=== PATIENT | female | born 2005 | race Caucasian/White ===

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

== ENCOUNTER → 2024-10-11 | Outpatient (CLI) | payer OTHER ==
[~2024-10-11] MED LIST changes: +ACET500 PO; +AMOCLA875 PO
[2024-10-11 13:37] LABS: Source, Urine Clean Catch
[2024-10-11 15:41] LABS: U Amphetamine Screen Not Detected; U Barbituate Screen Not Detected; U Benzodiazapine Screen Not Detected; U Buprenorphine Screen Not Detected; U Cannabinoids Screen Not Detected; U Cocaine Screen Not Detected; U Methadone Screen Not Detected; U Methamphetamine Screen Not Detected; U Opiates Screen Not Detected; U Oxycodone Screen Not Detected; U Phencyclidine Screen Not Detected
[2024-10-11 15:45] LABS: Amorphous Mod (0-Heavy); Bacteria Mod /hpf; Red Blood Cells, Urine 0-2 /hpf (0-2); Squamous Epithelial Cells Few /hpf (Few)
== END | disposition home or self-care (01) ==
LOC: LAB 13:34 → LAB SHORT 13:34
PROVIDERS: Advanced Practice Midwife
DX: Z34.81 Encounter for supervision of other normal pregnancy, first trimester (principal)
CPT/HCPCS: 81015; 87086

== ENCOUNTER 2025-01-02 20:48 | Emergency (ER) | payer OTHER ==
[~2025-01-02] VITALS: Ht 162.6 cm; Wt 69.4 kg
[2025-01-02 21:35] LABS: Albumin/Globulin Ratio 0.8 (0.8-1.8); Bilirubin, Total 0.2 mg/dL (0.1-1.0); Bun/Creatinine Ratio 16.4 (12.0-20.0); Calcium, Blood 8.8 mg/dL (8.5-10.1); Creatinine, Blood 0.49 mg/dL (0.40-1.00); Globulin, Blood 3.8 g/dL (2.2-4.0); Potassium, Blood 4.3 mmol/L (3.5-5.5); Total Protein, Blood 6.8 g/dL (6.4-8.2)
[2025-01-02 21:36] LABS: BASOPHILS ABSOLUTE AUTO 0.05 K/mm3 (0.00-0.23); BASOPHILS PERCENT AUTO 0 % (0-2); EOSINOPHILS ABSOLUTE AUTO 0.07 K/mm3 (0.00-0.68); EOSINOPHILS PERCENT AUTO 0 % (0-6); Hematocrit 33.9 % (33.0-51.0); Hemoglobin 11.7 g/dL (11.5-16.0); IMMATURE GRAN ABSOLUTE AUTO 0.08 K/mm3 (0.00-0.10); IMMATURE GRAN PERCENT AUTO 1 % (0-1); LYMPHOCYTES ABSOLUTE AUTO 2.81 K/mm3 (0.84-5.20); LYMPHOCYTES PERCENT AUTO 18 % (21-46); MONOCYTES ABSOLUTE AUTO 0.62 K/mm3 (0.16-1.47); MONOCYTES PERCENT AUTO 4 % (4-13); Mean Corpuscular HGB 29.2 pg (26.0-34.0); Mean Corpuscular HGB Conc 34.5 g/dL (31.5-36.5); Mean Corpuscular Volume 85 fL (80-100); Mean Platelet Volume 10.9 fL (9.1-12.4); NEUTROPHILS ABSOLUTE AUTO 12.33 K/mm3 (1.96-9.15); NEUTROPHILS PERCENT AUTO 77 % (41-73); Platelet Count 242 K/mm3 (150-400); RDW Coefficient Variation 13.7 % (11.7-14.2); RDW Standard Deviation 42.4 fL (35.1-46.3); Red Blood Cell Count 4.01 M/mm3 (3.80-5.20); White Blood Cell Count 15.96 K/mm3 (4.00-11.30)
[2025-01-02] MEDS ORDERED: Ondansetron HCl 2 MG / ML 2ML Vial IV ONE (22:25)
[2025-01-02] MEDS ORDERED: D5W-NS 1,000 ML IV SCH (22:25)
[2025-01-02 22:39] LABS: Source, Urine Clean Catch
[2025-01-02 22:43] LABS: Bilirubin, Urine Neg (Neg); Blood, Urine 1+ (Neg); Glucose Qualitative, Urine Neg (Neg); Ketones, Urine Neg (Neg); Leukocyte Esterase, Urine 2+ (Neg); Nitrite, Urine Neg (Neg); Protein, Urine 1+ (Neg); Specific Gravity, Urine 1.025 (1.003-1.022); Urobilinogen, Urine NORM (Normal)
[2025-01-02 22:53] LABS: Amorphous Light (0-Heavy); Appearance, Urine Hazy (Clear); Bacteria Many /hpf; Color, Urine Yellow (P-Yellow); Mucus Light (0-Heavy); Squamous Epithelial Cells Mod /hpf (Few)
[2025-01-02 23:15] VITALS: BP 101/69
[2025-01-02] MEDS ORDERED: CEPH500 PO (23:23)
[2025-01-02] MEDS ORDERED: ONDA4ODT MM (23:23)
[2025-01-02] MEDS ORDERED: Cephalexin Monohydrate 500 MG Cap PO ONE (23:25)
== END 2025-01-02 23:40 | disposition home or self-care (01) ==
LOC: ER 20:48
PROVIDERS: Emergency Medicine; Student in an Organized Health Care Education/Training Program
DX: O23.42 Unspecified infection of urinary tract in pregnancy, second trimester (principal); N39.0 Urinary tract infection, site not specified; Z3A.19 19 weeks gestation of pregnancy; F17.290 Nicotine dependence, other tobacco product, uncomplicated
CPT/HCPCS: 76815; 80053; 81001; 83690; 85025; 87086; 96361; 96374; 99284-25; A9270; J2405; J7042

== ENCOUNTER 2025-04-24 10:25 | Emergency (ER) | payer OTHER ==
[~2025-04-24] VITALS: Ht 157.5 cm; Wt 81.7 kg
[2025-04-24 11:04] VITALS: BP 131/76
[2025-04-24] MEDS ORDERED: HYDROCODONE-AC1 EA10 PO (11:09)
[2025-04-24] MEDS ORDERED: Amoxicillin875 MG PO (11:09)
[2025-05-23] MEDS ORDERED: IBUP800 PO (11:24)
== END 2025-07-02 11:14 | disposition home or self-care (01) ==
LOC: ER 10:25
DX: O99.613 Diseases of the digestive system complicating pregnancy, third trimester (principal); K08.89 Other specified disorders of teeth and supporting structures; Z3A.35 35 weeks gestation of pregnancy; Z79.899 Other long term (current) drug therapy; F17.290 Nicotine dependence, other tobacco product, uncomplicated
CPT/HCPCS: 99282

== ENCOUNTER 2025-04-28 22:41 | Observation (INO) | payer OTHER ==
[~2025-04-28] VITALS: Ht 157.5 cm; Wt 82.3 kg
[~2025-04-28 22:41] MED LIST changes: +Amoxicillin875 MG PO; +HYDROCODONE-AC1 EA10 PO
[2025-04-28 22:53] VITALS: BP 111/60
[2025-04-29 01:40] VITALS: BP 111/57
[2025-04-29 07:29] VITALS: BP 109/56
[2025-04-29 09:10] VITALS: BP 128/64
== END 2025-04-29 09:20 | disposition home or self-care (01) ==
LOC: OBS 22:41 → BC 22:42 → OBS 04-29 05:13 → BC 04-29 05:14
PROVIDERS: ADMIT Registered Nurse Community Health
DX: O60.03 Preterm labor without delivery, third trimester (principal); O99.333 Smoking (tobacco) complicating pregnancy, third trimester; F17.210 Nicotine dependence, cigarettes, uncomplicated; F17.290 Nicotine dependence, other tobacco product, uncomplicated; Z91.048 Other nonmedicinal substance allergy status; Z79.899 Other long term (current) drug therapy
CPT/HCPCS: 59025; 81003; 87081; 87150; 99214

== ENCOUNTER 2025-05-22 00:10 | Inpatient (IN) | payer OTHER ==
[~2025-05-22] VITALS: Ht 157.5 cm; Wt 84.0 kg
[2025-05-22] VITALS (38 sets, daily range): BP systolic 78–136; BP diastolic 40–80
[2025-05-22] MEDS ORDERED: Oxytocin 10 Unit / ML Vial IM PRN (00:40)
[2025-05-22] MEDS ORDERED: OXYTOCIN/RINGER'S LACTATE 500 ML IV PRN (00:40)
[2025-05-22] MEDS ORDERED: Ondansetron HCl 2 MG / ML 2ML Vial IV PRN (00:40)
[2025-05-22] MEDS ORDERED: Methylergonovine Maleate 0.2MG / ML 1ML Amp IM PRN ×2 (00:40→05:30)
[2025-05-22] MEDS ORDERED: Tranexamic Acid 100 ML IV SCH (00:40)
[2025-05-22] MEDS ORDERED: FentaNYL 2mcg/ml-Bup 0.1% Epd 250 ML EPI PRN (00:40)
[2025-05-22] MEDS ORDERED: FentaNYL Citrate 50 MCG/ML 2 ML Injection IV PRN (00:40)
[2025-05-22] MEDS ORDERED: ePHEDrine Sulfate 50 MG/ML 1ML Injection XX PRN (00:40)
[2025-05-22] MEDS ORDERED: Carboprost Tromethamine 250 MCG/ML 1ML Amp IM PRN (00:40)
[2025-05-22 00:58] LABS: BASOPHILS ABSOLUTE AUTO 0.07 K/mm3 (0.00-0.23); BASOPHILS PERCENT AUTO 0 % (0-2); EOSINOPHILS ABSOLUTE AUTO 0.06 K/mm3 (0.00-0.68); EOSINOPHILS PERCENT AUTO 0 % (0-6); Hematocrit 28.1 % (33.0-51.0); Hemoglobin 9.4 g/dL (11.5-16.0); IMMATURE GRAN ABSOLUTE AUTO 0.19 K/mm3 (0.00-0.10); IMMATURE GRAN PERCENT AUTO 1 % (0-1); LYMPHOCYTES ABSOLUTE AUTO 3.21 K/mm3 (0.84-5.20); LYMPHOCYTES PERCENT AUTO 16 % (21-46); MONOCYTES ABSOLUTE AUTO 1.38 K/mm3 (0.16-1.47); MONOCYTES PERCENT AUTO 7 % (4-13); Mean Corpuscular HGB Conc 33.5 g/dL (31.5-36.5); Mean Corpuscular Volume 77 fL (80-100); NEUTROPHILS ABSOLUTE AUTO 15.61 K/mm3 (1.96-9.15); NEUTROPHILS PERCENT AUTO 76 % (41-73); NRBC ABSOLUTE 0.00 K/mm3 (0.00-0.02); NRBC Auto 0.0 /100 WBC (0.0-0.2); Platelet Count 254 K/mm3 (150-400); RDW Coefficient Variation 13.9 % (11.7-14.2); RDW Standard Deviation 39.1 fL (35.1-46.3)
[2025-05-22] MEDS ORDERED: OxyCODONE 5 mg/Acetamin 325 mg TABLET PO PRN (05:30)
[2025-05-22] MEDS ORDERED: OXYTOCIN/RINGER'S LACTATE 500 ML IV SCH (05:30)
[2025-05-22] MEDS ORDERED: Oxytocin 10 Unit / ML Vial IM ONE (05:30)
[2025-05-22] MEDS ORDERED: Ketorolac Tromethamine 30mg Vial IV PRN (05:35)
[2025-05-22] MEDS ORDERED: Witch Hazel/Glycerin PADS TOP PRN (05:35)
[2025-05-22] MEDS ORDERED: Acetaminophen/Codeine 300-30 mg PO PRN (05:40)
[2025-05-22] MEDS ORDERED: Benzocaine Topical Anesthetic Spray 60GM TOP PRN (05:40)
[2025-05-22] MEDS ORDERED: Prenatal Vit/FE Fumarate/FA 1 Tab PO SCH (09:00)
[2025-05-23 05:09] VITALS: BP 111/62
[2025-05-23 06:01] LABS: BASOPHILS ABSOLUTE AUTO 0.07 K/mm3 (0.00-0.23); BASOPHILS PERCENT AUTO 1 % (0-2); EOSINOPHILS ABSOLUTE AUTO 0.15 K/mm3 (0.00-0.68); EOSINOPHILS PERCENT AUTO 1 % (0-6); Hematocrit 25.5 % (33.0-51.0); Hemoglobin 8.1 g/dL (11.5-16.0); IMMATURE GRAN ABSOLUTE AUTO 0.19 K/mm3 (0.00-0.10); IMMATURE GRAN PERCENT AUTO 1 % (0-1); LYMPHOCYTES ABSOLUTE AUTO 4.78 K/mm3 (0.84-5.20); LYMPHOCYTES PERCENT AUTO 33 % (21-46); MONOCYTES ABSOLUTE AUTO 0.87 K/mm3 (0.16-1.47); MONOCYTES PERCENT AUTO 6 % (4-13); Mean Corpuscular HGB Conc 31.8 g/dL (31.5-36.5); Mean Corpuscular Volume 81 fL (80-100); NEUTROPHILS ABSOLUTE AUTO 8.54 K/mm3 (1.96-9.15); NEUTROPHILS PERCENT AUTO 59 % (41-73); NRBC ABSOLUTE 0.00 K/mm3 (0.00-0.02); NRBC Auto 0.0 /100 WBC (0.0-0.2); Platelet Count 219 K/mm3 (150-400); RDW Coefficient Variation 14.4 % (11.7-14.2); RDW Standard Deviation 41.8 fL (35.1-46.3)
[2025-05-23 08:41] VITALS: BP 114/65
[2025-05-23] MEDS ORDERED: DEXTROSE 5% IV ONE (10:50)
[2025-05-23] MEDS ORDERED: CAFFEINE CITRATED IV ONE (10:50)
[2025-05-23 11:05] VITALS: BP 116/65
[2025-05-23] MEDS ORDERED: IBUP800 PO (11:24)
[2025-05-23] MEDS ORDERED: Sod Ferric Gluc Complx/Sucrose 125 MG in NS 100 ML IV SCH (12:00)
== END 2025-05-23 13:05 | disposition home or self-care (01) | DRG 807 ==
LOC: OBS 00:10 → BC 00:19 → OBS 00:36 → BC 00:37
PROVIDERS: ADMIT Registered Nurse Community Health
PROC: 10E0XZZ Delivery of Products of Conception, External Approach (ICD-10-PCS; principal; 2025-05-22)
PROC: 4A1HXCZ Monitoring of Products of Conception, Cardiac Rate, External Approach (ICD-10-PCS; 2025-05-22)
DX: O99.62 Diseases of the digestive system complicating childbirth (principal); Z37.0 Single live birth; K21.9 Gastro-esophageal reflux disease without esophagitis; Z3A.39 39 weeks gestation of pregnancy; O69.81X0 Labor and delivery complicated by cord around neck, without compression, not applicable or unspecified; O70.0 First degree perineal laceration during delivery; I95.2 Hypotension due to drugs; O99.42 Diseases of the circulatory system complicating childbirth; O74.6 Other complications of spinal and epidural anesthesia during labor and delivery; O99.02 Anemia complicating childbirth
CPT/HCPCS: 36415; 51702; 59025; 85025; 86850; 86900; 86901; 99214; A9270; J0706; J1885; J2405; J2916; J7120

== ENCOUNTER 2025-09-11 15:11 | Emergency (ER) | payer OTHER ==
[~2025-09-11] VITALS: Ht 160 cm; Wt 73.0 kg
[~2025-09-11 15:11] MED LIST changes: +IBUP800 PO
[2025-09-11 15:25] VITALS: BP 132/112
[2025-09-11] MEDS ORDERED: Ondansetron HCl 2 MG / ML 2ML Vial IV ONE (15:30)
[2025-09-11 15:44] LABS: BASOPHILS ABSOLUTE AUTO 0.05 K/mm3 (0.00-0.23); BASOPHILS PERCENT AUTO 0 % (0-2); EOSINOPHILS ABSOLUTE AUTO 0.13 K/mm3 (0.00-0.68); EOSINOPHILS PERCENT AUTO 1 % (0-6); Hematocrit 40.9 % (33.0-51.0); Hemoglobin 13.3 g/dL (11.5-16.0); IMMATURE GRAN ABSOLUTE AUTO 0.03 K/mm3 (0.00-0.10); IMMATURE GRAN PERCENT AUTO 0 % (0-1); LYMPHOCYTES ABSOLUTE AUTO 5.05 K/mm3 (0.84-5.20); LYMPHOCYTES PERCENT AUTO 42 % (21-46); MONOCYTES ABSOLUTE AUTO 0.57 K/mm3 (0.16-1.47); MONOCYTES PERCENT AUTO 5 % (4-13); Mean Corpuscular HGB Conc 32.5 g/dL (31.5-36.5); Mean Corpuscular Volume 78 fL (80-100); NEUTROPHILS ABSOLUTE AUTO 6.21 K/mm3 (1.96-9.15); NEUTROPHILS PERCENT AUTO 52 % (41-73); NRBC ABSOLUTE 0.00 K/mm3 (0.00-0.02); NRBC Auto 0.0 /100 WBC (0.0-0.2); Platelet Count 320 K/mm3 (150-400); RDW Coefficient Variation 14.5 % (11.7-14.2); RDW Standard Deviation 40.2 fL (35.1-46.3)
[2025-09-11 16:07] LABS: Alanine Aminotransfer (ALT/SGP 29.0 U/L (12-78); Albumin, Blood 3.8 g/dL (3.4-5.0); Albumin/Globulin Ratio 1.0 (0.8-1.8); Anion Gap 9.0 mmol/L (3-11); Aspartate Aminotrans (AST/SGOT 18.0 U/L (12-37); Bilirubin, Total 0.3 mg/dL (0.1-1.0); Blood Urea Nitrogen 19.0 mg/dL (8-24); CO2, Blood 24.0 mmol/L (21-32); Calcium, Blood 9.0 mg/dL (8.5-10.1); Chloride, Blood 108.0 mmol/L (98-108); Creatinine, Blood 0.68 mg/dL (0.40-1.00); Globulin, Blood 3.8 g/dL (2.2-4.0); Glucose, Blood 91.0 mg/dL (70-99); Potassium, Blood 3.5 mmol/L (3.5-5.5); Sodium, Blood 137.0 mmol/L (136-145); Total Protein, Blood 7.6 g/dL (6.4-8.2)
[2025-09-11] MEDS ORDERED: RX Prepack 2 Tabs Ondansetron ODT 4MG UD ONE (18:00)
[2025-09-11] MEDS ORDERED: ONDA4ODT MM (18:00)
[2025-09-11 18:01] LABS: Source, Urine Clean Catch
[2025-09-11 18:05] LABS: Bilirubin, Urine Neg (Neg); Glucose Qualitative, Urine Neg (Neg); Ketones, Urine 2+ (Neg); Leukocyte Esterase, Urine Neg (Neg); Protein, Urine 2+ (Neg); Specific Gravity, Urine 1.015 (1.003-1.022); Urobilinogen, Urine NORM (Normal)
[2025-09-11 18:12] LABS: Color, Urine Pale Yellow (P-Yellow)
[2025-09-11 18:13] LABS: Red Blood Cells, Urine 0-2 /hpf (0-2); White Blood Cells, Urine 0-2 /hpf (0-5)
[2025-09-12] MEDS ORDERED: AMOCLA875 PO (14:06)
== END 2025-09-11 18:04 | disposition home or self-care (01) ==
LOC: ER 15:11
PROVIDERS: Student in an Organized Health Care Education/Training Program
DX: K52.9 Noninfective gastroenteritis and colitis, unspecified (principal); K04.7 Periapical abscess without sinus; F17.290 Nicotine dependence, other tobacco product, uncomplicated; Z91.048 Other nonmedicinal substance allergy status
CPT/HCPCS: 74177; 80053; 81001; 83690; 84703; 85025; 99284-25; A9270; J2405; Q9967